=== PATIENT | female | born 1980 | race Caucasian/White ===

== ENCOUNTER 2018-01-23 01:30 | Inpatient (IN) | payer OTHER ==
[~2018-01-23] VITALS: Ht 162.6 cm; Wt 62.6 kg
--- NOTE | 2018-01-23 01:35 | NUR ---
BIB C/O GENERALIZED ABD PAIN WITH N/V/D X 2 HOURS BANK REPRESENTATIVE. PATIENT STATES SHE IS 6 . SKIN PALE AND COLD TO TOUCH. PT NOTED TO BE HYPOTENSIVE. ER MD KEATING AWARE AND MD BEDSIDE WITH PT. PT IS AAOX4. PT DENIES HEMATURIA, DYSURIA, SPOTTING. MILD S/S OF ACUTE DISTRESS NOTED. RR EVEN AND UNLABORED. PT PLACED ON MILL SET UP AND POX. PT SAFETY AND COMFORT MEASURES IN PLACE. PT'S BEDSIDE
[2018-01-23] MEDS ORDERED: DICYCLOMINE HCL INJ 20 MG/2 ML AMPUL IM ONE ×2 (01:52→02:00)
[2018-01-23] MEDS ORDERED: ONDANSETRON HCL/PF 4 MG/2 ML VIAL ONE (01:52)
[2018-01-23] MEDS ORDERED: ONDANSETRON HCL/PF 4 MG/2 ML VIAL IVP ONE (02:00)
[2018-01-23] MEDS ORDERED: IV NS 0.9% 500 ML BAG IV ONE (02:00)
[2018-01-23] MEDS ORDERED: IV NS 0.9% 1,000 ML BAG IV ONE ×2 (02:00→03:30)
[2018-01-23 02:14] LABS: BASOPHILS # (AUTO) 0.1 /CMM (0.0-0.2); BASOPHILS % (AUTO) 0.3 % (0.0-2.0); EOSINOPHILS % (AUTO) 0.4 % (0.0-6.0); HEMATOCRIT 32 % (33-45); HEMOGLOBIN 10.3 g/dL (11.5-14.8); LYMPHOCYTES # (AUTO) 3.5 /CMM (0.8-4.8); MEAN CORPUSCULAR HGB CONC 32 g/dl (31.0-36.0); MEAN CORPUSCULAR VOLUME 96 fL (82-100); MONOCYTES # (AUTO) 0.5 /CMM (0.1-1.30); MONOCYTES % (AUTO) 2.4 % (2.0-12.0); NEUTROPHILS # (AUTO) 15.6 /CMM (1.8-8.9); NEUTROPHILS % (AUTO) 78.9 % (43.0-81.0); PLATELET COUNT (AUTO) 285 /CMM (150-450); RDW COEFFICIENT OF VARIATION 11.7 (11.5-15.0); RED BLOOD CELL COUNT(AUTO) 3.29 MIL/uL (4.0-5.2); WHITE BLOOD COUNT (AUTO) 19.7 K/uL (4.3-11.0)
[2018-01-23 02:23] LABS: CALCIUM, SERUM 8.1 mg/dL (8.5-10.1); CREATININE 1.1 mg/dL (0.6-1.3); POTASSIUM 3.7 mmol/L (3.5-5.1)
--- NOTE | 2018-01-23 02:26 | NUR ---
RECEIVED CALL FROM LAB, PT IS NOT A CANDIDATE FOR [facility]
--- NOTE | 2018-01-23 03:49 | NUR ---
CALLED DR. DOLAN (OB) [phone] KEATING REGARDING POC
--- NOTE | 2018-01-23 04:04 | NUR ---
CALLED [facility] FOR PANEL ADMISSION.
--- NOTE | 2018-01-23 04:11 | NUR ---
PT ASSIGNED TO [facility]
[2018-01-23] MEDS ORDERED: MORPHINE SULFATE INJ 4 MG/ML DISP.SYRIN ONE (04:17)
[2018-01-23] MEDS ORDERED: MORPHINE SULFATE INJ 2 MG/ML DISP.SYRIN IV ONE (04:30)
--- NOTE | 2018-01-23 04:30 | NUR ---
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 AWAITING DR DOLAN TO SPEAK TO PT AND OBTAIN INFORMED CONSENT FOR SURGERY
--- NOTE | 2018-01-23 04:45 | NUR ---
BLOOD TRANSFUSION STARTED PER MD'S ORDERS AND VERIFIED BY RN AMANDA
[2018-01-23] MEDS ORDERED: BUPIVACAINE 0.5 % PF 150 MG/30 ML VIAL ONE (05:03)
[2018-01-23] MEDS ORDERED: ANESTHESIA TRAY IN PYXIS 1 EA TRAY MC ONE (05:03)
[2018-01-23 05:04] LABS: INR 0.96 (0.87-1.13)
[2018-01-23] MEDS ORDERED: MIDAZOLAM HCL 2 MG/2ML VIAL ONE (05:04)
[2018-01-23] MEDS ORDERED: SUCCINYLCHOLINE CHLORIDE 20 MG/ML VIAL ONE (05:05)
[2018-01-23] MEDS ORDERED: ROCURONIUM BROMIDE 50 MG/5 ML ONE (05:05)
--- NOTE | 2018-01-23 05:15 | NUR ---
PT TRANSFERED TO OR
--- NOTE | 2018-01-23 05:20 | NUR ---
[facility] CALLED BACK, AWARE DR. LARSEN HAS NOT CALLED BACK, MD PAGED AGAIN. WAITING FOR CALL BACK
--- NOTE | 2018-01-23 05:22 | NUR ---
REPORT GIVEN TO TERESO CALDWELL FOR PAUL.
--- NOTE | 2018-01-23 05:35 | NUR ---
DR EMANUEL SPEAKING TO DR KEATING
[2018-01-23] MEDS ORDERED: HYDROMORPHONE 1 MG/1 ML DISP.SYRIN ONE (06:37)
[2018-01-23 07:40] VITALS: BP 98/63
--- NOTE | 2018-01-23 07:40 | NUR ---
MS TERESO AM NOTES RECEIVED PATIENT VIA GURNEY FROM SURGERY. S/P MINILAP - SALPHINGECTOMY RIGHT DUE TO ECTOPIC BY DR. DOLAN, . AOX 3, ON ROOM AIR, BREATHING UNLABORED. PT S/P 1 PRBC TRANSFUSION AT SURGERY, 2ND BAG PRBC ONGOING. DENIES PAIN. LAC G20 AND RAC G20 FLUSHING WELL. PLACED ON SOFT DIET. BED REST FOR NOW. DRESSING ON LOWER ABDOMEN CDI. CALL LIGHT WITHIN REACH, SAFETY MEASURES IN PLACE. WILL CONT TO MONITOR.
[2018-01-23 08:00] VITALS: BP 98/63
[2018-01-23] MEDS ORDERED: ONDANSETRON HCL/PF 8 MG in IV D5W 50 ML IVP PRN (08:30)
[2018-01-23] MEDS ORDERED: oxyCODONE/APAP (5/325 MG) 1 UDTAB TABLET PO PRN ×2 (08:30)
[2018-01-23] MEDS: HYDROMORPHONE INJ 2 MG/ML DISP.SYRIN IV PRN ×2 (10:01→16:07)
[2018-01-23] MEDS: IV LR 1000 ML 1,000 ML IV PRN ×2 (10:01→17:39)
[2018-01-23 12:34] LABS: BASOPHILS % (AUTO) 0.1 % (0.0-2.0); HEMATOCRIT 28 % (33-45); HEMOGLOBIN 9.2 g/dL (11.5-14.8); LYMPHOCYTES % (AUTO) 9.1 % (20.0-44.0); MEAN CORPUSCULAR HGB CONC 33 g/dl (31.0-36.0); MEAN CORPUSCULAR VOLUME 94 fL (82-100); MONOCYTES # (AUTO) 0.4 /CMM (0.1-1.30); MONOCYTES % (AUTO) 3.8 % (2.0-12.0); NEUTROPHILS # (AUTO) 9.8 /CMM (1.8-8.9); PLATELET COUNT (AUTO) 168 /CMM (150-450); RDW COEFFICIENT OF VARIATION 12.9 (11.5-15.0); RED BLOOD CELL COUNT(AUTO) 2.99 MIL/uL (4.0-5.2); WHITE BLOOD COUNT (AUTO) 11.3 K/uL (4.3-11.0)
[2018-01-23 16:00] VITALS: BP 106/46
[2018-01-23] MEDS ORDERED: ONDANSETRON HCL/PF 4 MG/2 ML VIAL IV PRN (16:30)
--- NOTE | 2018-01-23 19:11 | NUR ---
MS RN NOTES PT RESTING. NO OTHER SIGNIFICANT CHANGE IN CONDITION. STABLE. NOT IN ANY DISTRESS. ALL NEEDS MET. REPORT GIVEN TO NEXT SHIFT FOR PAUL.
[2018-01-23 20:00] VITALS: BP 97/49
--- NOTE | 2018-01-23 20:54 | NUR ---
spoke to md antonio, pt requested prn stool softener, with new order of senokot po daily prn.
[2018-01-23] MEDS ORDERED: SENNOSIDES 8.6 MG TABLET PO PRN (21:00)
[2018-01-23] MEDS ORDERED: SENNOSIDES 8.6 MG TABLET PO SCH (22:00)
[2018-01-23] MEDS: HYDROMORPHONE INJ 2 MG/ML DISP.SYRIN IM PRN (22:54)
[2018-01-24] VITALS (8 sets, daily range): BP systolic 91–106; BP diastolic 29–63
[2018-01-24] MEDS: HYDROMORPHONE INJ 2 MG/ML DISP.SYRIN IM PRN ×2 (02:34→07:37)
[2018-01-24] MEDS: IV LR 1000 ML 1,000 ML IV PRN ×3 (02:34→23:10)
[2018-01-24 05:47] LABS: BASOPHILS % (AUTO) 0.1 % (0.0-2.0); EOSINOPHILS % (AUTO) 0.6 % (0.0-6.0); HEMATOCRIT 23 % (33-45); HEMOGLOBIN 7.4 g/dL (11.5-14.8); LYMPHOCYTES # (AUTO) 2.6 /CMM (0.8-4.8); LYMPHOCYTES % (AUTO) 29.3 % (20.0-44.0); MEAN CORPUSCULAR HGB CONC 33 g/dl (31.0-36.0); MEAN CORPUSCULAR VOLUME 94 fL (82-100); MONOCYTES # (AUTO) 0.7 /CMM (0.1-1.30); MONOCYTES % (AUTO) 7.9 % (2.0-12.0); NEUTROPHILS # (AUTO) 5.5 /CMM (1.8-8.9); NEUTROPHILS % (AUTO) 62.1 % (43.0-81.0); PLATELET COUNT (AUTO) 139 /CMM (150-450); RDW COEFFICIENT OF VARIATION 12.8 (11.5-15.0); WHITE BLOOD COUNT (AUTO) 8.9 K/uL (4.3-11.0)
[2018-01-24 06:01] LABS: CALCIUM, SERUM 7.4 mg/dL (8.5-10.1); CREATININE 0.7 mg/dL (0.6-1.3); POTASSIUM 3.3 mmol/L (3.5-5.1)
[2018-01-24] MEDS ORDERED: POTASSIUM CHLORIDE 20 MEQ TAB.PRT.SR PO SCH (10:00)
[2018-01-24] MEDS ORDERED: BISACODYL (5 MG) 5 MG TABLET.DR PO PRN (11:30)
[2018-01-24] MEDS ORDERED: HYDROMORPHONE INJ 2 MG/ML DISP.SYRIN IV PRN (11:30)
[2018-01-24] MEDS ORDERED: HYDROCODONE/APAP 10/325MG 1 EA TABLET PO PRN (11:30)
[2018-01-24] MEDS: TRAMADOL HCL 50 MG TABLET PO SCH ×2 (11:53→18:35)
[2018-01-24] MEDS: DOCUSATE SODIUM 100 MG CAPSULE PO SCH (17:35)
--- NOTE | 2018-01-24 18:14 | NUR ---
M/S RN - Notes Patient in bed awake, A/O x 4, not in any form of distress, remain afebrile, POD#1 ex-lap right salpingectomy, lap sites x 2 covered with mepilex dressing, blood tinged noted, abdomen mildly distended, unable to pass flatus yet, post-op teachings given. Hemoglobin dropped to 7.4, no active bleeding seen, no blood transfusion indicated at this time. Patient c/o moderate pain on incision sites, relieved by [place] alt with Tramadol. IVF LR at 125 ml/hr infusing well on the left hand with no complications seen. All needs attended and met. Patient updated on plan of care. Will continue with current medical management.
--- NOTE | 2018-01-24 19:20 | NUR ---
MS/RN OPENING NOTES PT RECEIVED AWAKE, SITTING UP IN BED. A/OX4. ON ROOM AIR, BREATHING EVEN AND UNLABORED. DENIES SOB, IN NO ACUTE DISTRESS. ABDOMINAL PAIN NOTED 07/19, RECENTLY RECEIVED PAIN MEDICATION. IV TO LEFT HAND RUNNING IVF ORDERED. DENIES PASSING GAS OR BM YET, BUT POSITIVE BOWEL SOUNDS NOTED. ENCOURAGED PT TO WALK. BED IN LOW/LOCKED POSITION WITH CALL LIGHT IN REACH. BILATERAL UPPER SIDE RAILS IN PLACE. WILL CONTINUE TO MONITOR
[2018-01-24] MEDS: POLYETHYLENE GLYCOL 3350 17 GM POWD.PACK PO SCH (21:31)
[2018-01-24] MEDS: HYDROCODONE/APAP 5/325MG 1 EACH TABLET PO PRN (23:14)
[2018-01-25] VITALS (7 sets, daily range): BP systolic 91–111; BP diastolic 41–67
[2018-01-25] MEDS: TRAMADOL HCL 50 MG TABLET PO SCH ×3 (03:39→20:50)
[2018-01-25 06:21] LABS: BASOPHILS % (AUTO) 0.4 % (0.0-2.0); EOSINOPHILS % (AUTO) 1.5 % (0.0-6.0); LYMPHOCYTES # (AUTO) 2.2 /CMM (0.8-4.8); LYMPHOCYTES % (AUTO) 40.9 % (20.0-44.0); MEAN CORPUSCULAR HGB CONC 34 g/dl (31.0-36.0); MEAN CORPUSCULAR VOLUME 95 fL (82-100); MONOCYTES # (AUTO) 0.5 /CMM (0.1-1.30); MONOCYTES % (AUTO) 9.2 % (2.0-12.0); NEUTROPHILS # (AUTO) 2.5 /CMM (1.8-8.9); PLATELET COUNT (AUTO) 112 /CMM (150-450); RDW COEFFICIENT OF VARIATION 13.2 (11.5-15.0); RED BLOOD CELL COUNT(AUTO) 2.09 MIL/uL (4.0-5.2); WHITE BLOOD COUNT (AUTO) 5.3 K/uL (4.3-11.0)
[2018-01-25 06:44] LABS: HEMATOCRIT 20 % (33-45); HEMOGLOBIN 6.6 g/dL (11.5-14.8)
[2018-01-25 06:48] LABS: CALCIUM, SERUM 7.7 mg/dL (8.5-10.1); CREATININE 0.7 mg/dL (0.6-1.3); MAGNESIUM 1.7 mg/dL (1.8-2.4); PHOSPHORUS 3.1 mg/dL (2.5-4.9); POTASSIUM 3.3 mmol/L (3.5-5.1)
--- NOTE | 2018-01-25 07:30 | NUR ---
MS/RN CLOSING NOTES PT AWAKE REMAINS ON ROOM AIR, BREATHING EVEN AND UNLABORED. DENIES SOB, PAIN MANAGED WITH SCHEDULED ULTRAM AND PRN NORCO. IV TO RIGHT HAND RUNNING IVF ORDERED. NOW PASSING GAS, NO BM YET. PT WALKED APPROX 50 FEET. SLEPT WELL DURING SHIFT. NO SIGNIFICANT CHANGES OVERNIGHT. LAB CALLED WITH CRITICAL RESULT OF H&H. INFORMED DAY SHIFT RN TO NOTIFY MD. BED IN LOW/LOCKED POSITION WITH CALL LIGHT IN REACH. BILATERAL UPPER SIDE RAILS IN PLACE. ENDORSED TO DAY SHIFT RN PAUL.
[2018-01-25] MEDS: IV LR 1000 ML 1,000 ML IV PRN (07:51)
[2018-01-25] MEDS: HYDROCODONE/APAP 5/325MG 1 EACH TABLET PO PRN ×3 (07:55→22:35)
--- NOTE | 2018-01-25 08:00 | NUR ---
RN MS NOTES PT IN BED, AWAKE, ALERT AND ORIENTED, EATING BREAKFAST, WITH COMPLAINT OF SLIGHT PAIN AT ABDOMEN AND BACK, STATED THAT PAIN IS BETTER TODAY, NO COMPLAINT OF DIZZINESS, IV FLUIDS INFUSING WELL, DRESSING TO ABDOMINAL INCISIONS INTACT AND DRY, NO ACTIVE BLEEDING NOTED, NO COMPLAINT OF VAGINAL BLEEDING, DR. KEVIN INFORMED OF LOW H/H, ORDER GIVEN FOR 1 UNIT PRBC TRANSFUSION, PT INFORMED, VERBALIZED UNDERSTANDING.
[2018-01-25 08:39] LABS: LYMPHOCYTES % (MANUAL) 47 % (16-48); MONOCYTES % (MANUAL) 8 % (0-11.0); NEUTROPHILS % (MANUAL) 45 (42-76)
[2018-01-25] MEDS: DOCUSATE SODIUM 100 MG CAPSULE PO SCH ×2 (09:18→17:07)
[2018-01-25] MEDS: Magnesium 1GM/D5W 100ML PREMIX 100 ML IV SCH ×3 (12:02→22:03)
[2018-01-25] MEDS: POTASSIUM CHLORIDE 20 MEQ TAB.PRT.SR PO SCH ×4 (12:03→16:56)
[2018-01-25] MEDS: SOD FERRIC GLUC 125 MG in IV NS 0.9% 100 ML IV SCH (18:20)
[2018-01-25] MEDS: BISACODYL SUPP (10 MG) 10 MG/SUPP.RECT SUPP.RECT RC PRN (19:09)
--- NOTE | 2018-01-25 19:13 | NUR ---
RN MS NOTES PT IN BED, AWAKE, ALERT AND ORIENTED, PAIN MEDICATION GIVEN FOR LOWER ABDOMINAL PAIN, NO BLEEDING AT INCISION SITE, NO COMPLAINT OF VAGINAL BLEEDING, ABLE TO AMBULATE ALONG THE HALLWAY AND TO THE BATHROOM, COMPLETED 1 UNIT PRBC TRANSFUSION, TOLERATED WELL, SEEN BY DR. KEVIN, PLAN OF CARE DISCUSSED WITH PT, VERBALIZED UNDERSTANDING, IV FLUIDS INFUSING WELL, ALL NEEDS ATTENDED.
[2018-01-25] MEDS: POLYETHYLENE GLYCOL 3350 17 GM POWD.PACK PO SCH (20:50)
[2018-01-26] MEDS: IV LR 1000 ML 1,000 ML IV PRN (02:08)
[2018-01-26] MEDS: TRAMADOL HCL 50 MG TABLET PO SCH ×3 (03:35→20:24)
[2018-01-26 05:00] VITALS: BP 123/86
[2018-01-26] MEDS: HYDROCODONE/APAP 5/325MG 1 EACH TABLET PO PRN ×3 (06:33→21:52)
--- NOTE | 2018-01-26 06:48 | NUR ---
MS RN NOTES AWAKE & RESPONSIVE. NOT IN ANY DISTRESS. NO SOB NOTED. DENIES ANY PAIN OR DISCOMFORT AT THIS TIME. WITH IVF INFUSING WELL. MONITORED ACCORDINGLY. CALL LIGHT WITHIN REACH. BED IN LOWEST POSITION. SR UP X 2 FOR SAFETY. WILL ENDORSE TO NEXT SHIFT.
--- NOTE | 2018-01-26 07:00 | NUR ---
MS RN OPENING NOTES RECEIVED PT ON BED.ALERT/ORIENTED X4.ON RA WITH O2 SAT 96%,TOLERATING WELL.NO SOB AND ACUTE DISTRESS NOTED.PERIPHERAL IV LINE IS ON RIGHT HAND G 22,SITE IS CLEAN,DRY AND INTACT.SAFETY IS MAINTAINED ALL THE TIME.BED IS IN LOW POSITION AND LOCKED.CALL LIGHT IS WITHIN REACH.WILL CONTINUE TO MONITOR THE PT CLOSELY.
[2018-01-26 07:40] LABS: BASOPHILS % (AUTO) 0.5 % (0.0-2.0); EOSINOPHILS % (AUTO) 2.3 % (0.0-6.0); HEMATOCRIT 23 % (33-45); HEMOGLOBIN 7.8 g/dL (11.5-14.8); LYMPHOCYTES # (AUTO) 2.2 /CMM (0.8-4.8); LYMPHOCYTES % (AUTO) 39.1 % (20.0-44.0); MEAN CORPUSCULAR HGB CONC 34 g/dl (31.0-36.0); MEAN CORPUSCULAR VOLUME 95 fL (82-100); MONOCYTES # (AUTO) 0.4 /CMM (0.1-1.30); MONOCYTES % (AUTO) 7.5 % (2.0-12.0); NEUTROPHILS # (AUTO) 2.8 /CMM (1.8-8.9); NEUTROPHILS % (AUTO) 50.6 % (43.0-81.0); PLATELET COUNT (AUTO) 124 /CMM (150-450); RDW COEFFICIENT OF VARIATION 12.8 (11.5-15.0); RED BLOOD CELL COUNT(AUTO) 2.43 MIL/uL (4.0-5.2); WHITE BLOOD COUNT (AUTO) 5.6 K/uL (4.3-11.0)
[2018-01-26 08:00] VITALS: BP 129/87
[2018-01-26 08:05] LABS: CALCIUM, SERUM 7.6 mg/dL (8.5-10.1); CREATININE 0.7 mg/dL (0.6-1.3)
[2018-01-26] MEDS: DOCUSATE SODIUM 100 MG CAPSULE PO SCH ×2 (09:00→16:24)
[2018-01-26] MEDS: BISACODYL SUPP (10 MG) 10 MG/SUPP.RECT SUPP.RECT RC PRN (09:14)
[2018-01-26] MEDS ORDERED: FUROSEMIDE 20 MG/2 ML VIAL IV ONE (10:00)
--- NOTE | 2018-01-26 11:00 | NUR ---
MS RN NOTES SEEN THE PT AND ORDERED TO D/C IV LR AND GIVE IV LASIX 20MG GIVEN AT ONCE.NO COMPLICATIONS NOTED.ENDORSED TO NARCOTICS DETECTIVE RN FOR CONTINUITY OF CARE.
[2018-01-26 16:00] VITALS: BP 137/96
[2018-01-26] MEDS: SOD FERRIC GLUC 125 MG in IV NS 0.9% 100 ML IV SCH (17:47)
--- NOTE | 2018-01-26 18:52 | NUR ---
MS RN CLOSING NOTES PT IS ON BED.IV FERRLECIT IS ON FLOWING.VITAL SIGNS CHECKED AND IT IS WNL.NO COMPLICATIONS NOTED.ENDORSED TO BOROUGH COORDINATOR RN FOR CONTINUITY OF CARE.
[2018-01-26 20:00] VITALS: BP 113/69
[2018-01-26] MEDS: POLYETHYLENE GLYCOL 3350 17 GM POWD.PACK PO SCH (21:55)
[2018-01-27] MEDS: TRAMADOL HCL 50 MG TABLET PO SCH ×2 (03:54→11:57)
[2018-01-27 04:00] VITALS: BP 122/45
[2018-01-27] MEDS: HYDROCODONE/APAP 5/325MG 1 EACH TABLET PO PRN (04:43)
[2018-01-27 08:00] VITALS: BP 108/69
--- NOTE | 2018-01-27 08:00 | NUR ---
MS RN NOTES PATIENT IN BED RESTING NO SOB OR ACUTE DISTRESS NOTED. PATIENT ALERT, ORIENTED X3. PAIN IS CONTROLLED WITH MEDICATION. BED IN LOW LOCKED POSITION. CALL LIGHT WITHIN REACH. WILL CONTINUE TO MONITOR.
[2018-01-27] MEDS: DOCUSATE SODIUM 100 MG CAPSULE PO SCH (09:03)
[2018-01-27] MEDS ORDERED: FERR325T23 PO (09:49)
[2018-01-27] MEDS ORDERED: IBUP-1955 PO (09:49)
--- NOTE | 2018-01-27 10:00 | NUR ---
MS RN NOTES PATIENT SEEN AND EVALUATED BY DR. KEVIN ORDERS TO DISCHARGE PATIENT HOME AFTER CBC HAS RESULTED IF H/H HAS INCREASED OK TO DC PATIENT HAD F/U WITH HVAC PROJECT MANAGER TODAY AT 1:30 .
[2018-01-27 10:47] LABS: BASOPHILS % (AUTO) 0.3 % (0.0-2.0); EOSINOPHILS % (AUTO) 2.4 % (0.0-6.0); HEMATOCRIT 27 % (33-45); HEMOGLOBIN 9.1 g/dL (11.5-14.8); LYMPHOCYTES # (AUTO) 1.3 /CMM (0.8-4.8); LYMPHOCYTES % (AUTO) 17.2 % (20.0-44.0); MEAN CORPUSCULAR HGB CONC 34 g/dl (31.0-36.0); MEAN CORPUSCULAR VOLUME 94 fL (82-100); MONOCYTES # (AUTO) 0.5 /CMM (0.1-1.30); MONOCYTES % (AUTO) 7.1 % (2.0-12.0); NEUTROPHILS # (AUTO) 5.5 /CMM (1.8-8.9); PLATELET COUNT (AUTO) 186 /CMM (150-450); WHITE BLOOD COUNT (AUTO) 7.5 K/uL (4.3-11.0)
--- NOTE | 2018-01-27 12:03 | NUR ---
MS RN NOTES PATIENT DISCHARGED HOME IN STABLE CONDITION. PATIENT ALERT, ORIENTED X3 WITH . DISCHARGE TEACHING PROVIDED VERBALIZED UNDERSTANDING. INCISION ON ABDOMEN COVERED WITH NONE REMOVABLE DRESSING INTACT PATENT. INSTRUCTED PATIENT ON INCISION CARE AND IF DRESSING IS ACCIDENTLY REMOVED. PATIENT VERBALIZED UNDERSTANDING. DISCHARGE PROTOCOL FOLLOWED. PERIPHERAL IV REMOVED. ID BAND REMOVED. ALL BELONGINGS ACCOUNTED FOR, BELONGING LIST SIGNED. PATIENT HAS APPOINTMENT WITH DIRECTOR PHONE TODAY AT 1:30 ALSO PROVIDED CONTACT INFORMATION OF DR. ALONSO FOR PATIENT TO FOLLOW UP. PATIENT DISCHARGED WITH .
== END 2018-01-27 12:03 | disposition home or self-care (01) | DRG 817 ==
LOC: ER 01:33 → TELE1 04:12 → MEDSG1 07:45
PROC: 10T24ZZ Resection of Products of Conception, Ectopic, Percutaneous Endoscopic Approach (ICD-10-PCS; principal; 2018-01-23 04:45)
PROC: 0UT54ZZ Resection of Right Fallopian Tube, Percutaneous Endoscopic Approach (ICD-10-PCS; principal; 2018-01-23 04:45)
PROC: 30233N1 Transfusion of Nonautologous Red Blood Cells into Peripheral Vein, Percutaneous Approach (ICD-10-PCS; principal; 2018-01-23 04:45)
DX: O00.101 Right tubal pregnancy without intrauterine pregnancy (principal); K66.1 Hemoperitoneum; D62 Acute posthemorrhagic anemia; J45.909 Unspecified asthma, uncomplicated; Z3A.08 8 weeks gestation of pregnancy; I95.9 Hypotension, unspecified; E86.1 Hypovolemia; Z85.41 Personal history of malignant neoplasm of cervix uteri
CPT/HCPCS: 36415; 76856-TC; 80048-TC; 83735-TC; 84100-TC; 84702-TC; 85025-TC; 85730-TC; 86850-TC; 86921-TC; 87081-TC; 88305-TC; A4606; G0378; J0330; J0500; J0690; J1100; J1170; J1940; J2250; J2270; J2405; J2704; J2710; J2916; J3475; J3490; J7030; J7040; J7050; J7060; J7120; P9016-BL; Z7610